=== PATIENT | female | born 1935 | race Caucasian/White ===

== ENCOUNTER 2019-07-10 22:30 | Emergency (ER) | payer MEDICARE, OTHER ==
[~2019-07-10] VITALS: Ht 162.6 cm; Wt 71.0 kg
[~2019-07-10 22:30] MED LIST: IBUP-1561 PO; METH500T PO
[2019-07-10 22:42] VITALS: Ht 162.6 cm; Wt 71.0 kg
[2019-07-10] MEDS ORDERED: HYDROCODONE/APAP (5/325) TAB PO ONE (23:00)
[2019-07-11 00:47] VITALS: BP 120/81; PULSE 75; RESP 17
== END 2019-07-11 01:25 | disposition home or self-care (01) ==
LOC: E/R 22:30 → EDBD 22:30 → E/R 07-11 01:25
DX: S16.1XXA Strain of muscle, fascia and tendon at neck level, initial encounter (principal); S29.019A Strain of muscle and tendon of unspecified wall of thorax, initial encounter; S39.012A Strain of muscle, fascia and tendon of lower back, initial encounter; R51 Headache; V49.50XA Passenger injured in collision with unspecified motor vehicles in traffic accident, initial encounter
CPT/HCPCS: 70450; 72125; 72128; 72131